=== PATIENT | female | born 1990 | race Caucasian/White ===

== ENCOUNTER 2017-08-16 21:58 | Emergency (ER) | payer BC ==
[~2017-08-16] VITALS: Ht 170.2 cm; Wt 104.3 kg
[~2017-08-16 21:58] MED LIST: AMPDEX30CR PO; ARIP20 PO; BIRTHCONTROL; CEPH500 PO; CIPR500 PO; DIVA500EC PO; DOXY100 PO; FLUC100 PO; Flagyl500 MG PO; HYDACE5 PO; IBUP800 PO; LAMO100 PO; LOPE2C PO; MEDR150I IM; Norco 5-325 Ta1 EACH PO; OXYC5; PHENA100 PO; PROC10 PO; PROM25 PO; Percocet 10-321 EACH PO; Percocet 5-3251 EACH PO; SERT25 PO; UNKNOWN ANTIBIOTIC; Vibramycin100 MG PO; Zofran Odt4 MG SL; Zofran4 MG PO; [UNRECOGNIZED DRUG - OTHER]
== END 2017-08-16 22:34 | disposition home or self-care (01) ==
LOC: ER 21:58
DX: B08.4 Enteroviral vesicular stomatitis with exanthem (principal); Z88.8 Allergy status to other drugs, medicaments and biological substances; F17.200 Nicotine dependence, unspecified, uncomplicated
CPT/HCPCS: 99281

== ENCOUNTER 2019-08-12 00:43 | Emergency (ER) | payer OTHER ==
[~2019-08-12] VITALS: Ht 170.2 cm; Wt 104.3 kg
== END 2019-08-12 02:52 | disposition home or self-care (01) ==
LOC: ER 00:43
DX: S67.192A Crushing injury of right middle finger, initial encounter (principal); Z23 Encounter for immunization; Z88.1 Allergy status to other antibiotic agents; Z87.891 Personal history of nicotine dependence; W23.0XXA Caught, crushed, jammed, or pinched between moving objects, initial encounter; Y99.0 Civilian activity done for income or pay
CPT/HCPCS: 73140; 90471; 90714; 99282-25

== ENCOUNTER 2019-09-17 23:07 | Emergency (ER) | payer OTHER ==
[~2019-09-17] VITALS: Ht 172.7 cm; Wt 108.9 kg
== END 2019-09-18 00:08 | disposition home or self-care (01) ==
LOC: ER 23:07
DX: S61.211A Laceration without foreign body of left index finger without damage to nail, initial encounter (principal); Z87.891 Personal history of nicotine dependence; Z88.1 Allergy status to other antibiotic agents; W23.0XXA Caught, crushed, jammed, or pinched between moving objects, initial encounter
CPT/HCPCS: 12001; 73140; 99283-25

== ENCOUNTER 2019-09-18 17:05 | Emergency (ER) | payer OTHER ==
[~2019-09-18] VITALS: Ht 172.7 cm; Wt 106.6 kg
== END 2019-09-18 18:09 | disposition home or self-care (01) ==
LOC: ER 17:05
DX: S61.211D Laceration without foreign body of left index finger without damage to nail, subsequent encounter (principal); Z88.1 Allergy status to other antibiotic agents; F17.200 Nicotine dependence, unspecified, uncomplicated
CPT/HCPCS: 99282